=== PATIENT | male | born 1960 | race Two or more races ===

== ENCOUNTER → 2024-05-27 | Outpatient (CLI) | payer MEDICARE, MEDICAID, SELFPAY ==
--- NOTE | 2024-05-27 14:29 | XR_ITS ---
Examination: Hand, left 3 views Technique: Hand AP, oblique, lateral 3 views Date and time of exam: May 27, 2024 1435 hours INDICATIONS: Left hand and wrist pain beginning 2 months ago FINDINGS: Moderate osteopenia No fracture or dislocation Mild to moderate osteoarthritis distal interphalangeal joints second through fifth digits and interphalangeal joint first digit as well as first carpometacarpal joint and radiocarpal joint No erosive arthritis IMPRESSION: Mild to moderate osteoarthritis
--- NOTE | 2024-05-27 14:29 | XR_ITS ---
Examination: Wrist, left 3 views Technique: Wrist AP, oblique, lateral 3 views Date and time of exam: May 27, 2024 1435 hours INDICATIONS: Left wrist pain beginning 2 months ago. FINDINGS: Moderate osteopenia Mild to moderate osteoarthritis radiocarpal first carpometacarpal joints No erosive arthritis no fracture IMPRESSION: Mild to moderate osteoarthritis radiocarpal and first carpometacarpal joints
== END | disposition home or self-care (01) ==
PROVIDERS: PCP Family Medicine
DX: M19.042 Primary osteoarthritis, left hand (principal); M18.12 Unilateral primary osteoarthritis of first carpometacarpal joint, left hand
CPT/HCPCS: 73110; 73130

== ENCOUNTER 2025-02-08 09:50 | Day surgery (SDC) | payer MEDICARE, SELFPAY ==
[2025-02-07 12:39] VITALS: BMI 26.9
[2025-02-08] VITALS (7 sets, daily range): BP systolic 110–178; BP diastolic 68–101; PULSE 52–69; RESP 13–19; TEMP 36.3–36.6; O2SAT 93–99; BMI 26.9
[2025-02-08] MEDS: BENZOCAINE 20% (Hurricaine) SPRAY 1 DOSE TOP (11:07)
[2025-02-08] MEDS: RINGERS LACTATED 1000 ML 1,000 ML 125 ML IV (11:07)
[2025-02-08] MEDS: MIDAZOLAM INJ 1 MG/ML VIAL 2 ML (ASD USE ONLY) 2 MG IVP ×2 (11:08→11:15)
[2025-02-08] MEDS: fentaNYL CIT INJ 50 mCg/ML AMP 2ML (ASD USE ONLY) IVP ×2 (11:08→11:15)
--- NOTE | 2025-02-08 11:49 | SUR.PHASEII ---
1149 pt tolerating water
--- NOTE | 2025-02-08 12:00 | SUR.PHASEII ---
1200 pt able to ambulate to bathroom void x1, able to dress self, IV DC'd cath intact, pressure dressing placed 1210 patient in WC awaitng family member
== END 2025-02-08 12:30 | disposition home or self-care (01) ==
PROVIDERS: Referring Provider Internal Medicine Gastroenterology; Visit Provider Internal Medicine Gastroenterology
PROC: (CPT 43239; principal; 2025-02-08 11:30)
DX: K31.A19 Gastric intestinal metaplasia without dysplasia, unspecified site (principal); K22.89 Other specified disease of esophagus; E66.9 Obesity, unspecified; I10 Essential (primary) hypertension; K29.50 Unspecified chronic gastritis without bleeding
CPT/HCPCS: 43239; J2250; J3010; J7120; A9270

== ENCOUNTER 2025-02-10 07:05 | Day surgery (SDC) | payer MEDICARE, SELFPAY ==
[2025-02-09 12:48] VITALS: BMI 26.9
[2025-02-10] VITALS (9 sets, daily range): BP systolic 95–158; BP diastolic 62–94; PULSE 55–75; RESP 12–19; TEMP 36.6; O2SAT 94–99; BMI 25.9
[2025-02-10] MEDS: RINGERS LACTATED 1000 ML 1,000 ML 125 ML IV (09:05)
[2025-02-10] MEDS: fentaNYL CIT INJ 50 mCg/ML AMP 2ML (ASD USE ONLY) IVP (09:08)
[2025-02-10] MEDS: MIDAZOLAM INJ 1 MG/ML VIAL 2 ML (ASD USE ONLY) 2 MG IVP (09:08)
== END 2025-02-10 10:05 | disposition home or self-care (01) ==
PROVIDERS: Referring Provider Internal Medicine Gastroenterology; Visit Provider Internal Medicine Gastroenterology
PROC: 0DBE8ZX Excision of Large Intestine, Via Natural or Artificial Opening Endoscopic, Diagnostic (ICD-10-PCS; CPT 45380; principal; 2025-02-10 07:30)
DX: R10.9 Unspecified abdominal pain (principal); I10 Essential (primary) hypertension; K52.9 Noninfective gastroenteritis and colitis, unspecified; K64.8 Other hemorrhoids
CPT/HCPCS: 45380; J2250; J3010; J7120